=== PATIENT | male | born 1985 | race Caucasian/White ===

== ENCOUNTER 2017-09-19 16:59 | Emergency (ER) | payer OTHER ==
[~2017-09-19] VITALS: Ht 190.5 cm; Wt 63.4 kg
[2017-09-19 17:11] VITALS: BP 108/76
[2017-09-19] MEDS ORDERED: KETOROLAC 30 MG/1 ML IM ONE (18:30)
[2017-09-19] MEDS ORDERED: METHOCARBAMOL 750 MG TABLET PO ONE (18:30)
[2017-09-19] MEDS ORDERED: BACITRACIN OINT 500U/GM, 15 GM TP PRN (19:00)
[2017-09-19] MEDS ORDERED: BACITRACIN ZINC OINT 500U/GM, 0.9 GM ONE (19:04)
[2017-09-19] MEDS ORDERED: KETOROLAC 30 MG/1 ML ONE (19:04)
[2017-09-19] MEDS ORDERED: METHOCARBAMOL 750 MG TABLET ONE (19:04)
== END 2017-09-19 19:23 | disposition home or self-care (01) ==
LOC: ED 19:17
DX: S16.1XXA Strain of muscle, fascia and tendon at neck level, initial encounter (principal); S89.92XA Unspecified injury of left lower leg, initial encounter; V49.9XXA Car occupant (driver) (passenger) injured in unspecified traffic accident, initial encounter; Y93.89 Activity, other specified; Y92.89 Other specified places as the place of occurrence of the external cause; Y99.8 Other external cause status
CPT/HCPCS: 70450; 72125; 73564; 96372; 99284; J1885

== ENCOUNTER 2018-01-06 21:44 | Emergency (ER) | payer OTHER ==
[~2018-01-06] VITALS: Ht 190.5 cm; Wt 63.8 kg
[2018-01-06] MEDS ORDERED: ONDANSETRON ODT 4 MG ONE (22:29)
[2018-01-06] MEDS ORDERED: MECLIZINE CHEWABLE 25 MG TAB ONE (22:29)
[2018-01-06] MEDS ORDERED: MECLIZINE CHEWABLE 25 MG TAB PO ONE (22:30)
[2018-01-06] MEDS ORDERED: ONDANSETRON ODT 4 MG PO ONE (22:30)
[2018-01-06 22:36] LABS: MEAN CORPUSCULAR HEMOGLOBIN 31.3 pg (27.5-34.5); MEAN CORPUSCULAR HGB CONC 34.5 g/dL (33.2-36.2); MEAN CORPUSCULAR VOLUME 90.7 fL (81-97); RED BLOOD COUNT 4.64 x10^6/uL (4.38-5.82)
[2018-01-06 22:37] LABS: BASOPHILS # (AUTO) 0.03 x10^3/uL (0-0.1); BASOPHILS % (AUTO) 1 % (0-1); EOSINOPHILS # (AUTO) 0.32 x10^3/uL (0-0.4); EOSINOPHILS % (AUTO) 6 % (1-7); LYMPHOCYTES # (AUTO) 1.69 x10^3/uL (1-3.4); LYMPHOCYTES % (AUTO) 31 % (22-44); MD NO; MEAN PLATELET VOLUME 9.4 fL (7.4-10.4); MONOCYTES # (AUTO) 0.42 x10^3/uL (0.2-0.8); MONOCYTES % (AUTO) 8 % (2-9); NEUTROPHILS # (AUTO) 3.07 x10^3/uL (1.8-6.8); NEUTROPHILS % (AUTO) 56 % (42-75); PLATELET COUNT 135 x10^3/uL (130-400)
[2018-01-06 22:45] LABS: ALANINE AMINOTRANSFERASE 21 U/L (12-78); ALBUMIN 4.3 g/dL (3.4-5.0); ANION GAP 7 mmol/L (5-15); CALCIUM 8.9 mg/dL (8.5-10.1); CHLORIDE 103 mmol/L (98-107); CREATININE 0.89 mg/dL (0.7-1.3)
[2018-01-06 22:49] LABS: ALKALINE PHOSPHATASE 68 U/L (45-117); BILIRUBIN,TOTAL 0.7 mg/dL (0.2-1.0); TOTAL PROTEIN 7.3 g/dL (6.4-8.2); TROPONIN I < 0.015 ng/mL (0.000-0.045)
[2018-01-06 23:59] VITALS: BP 110/76
== END 2018-01-07 00:03 | disposition home or self-care (01) ==
LOC: ED 22:23
DX: R42 Dizziness and giddiness (principal); R11.0 Nausea; R06.00 Dyspnea, unspecified
CPT/HCPCS: 36415; 71045; 80053; 84484; 85025; 93005; 99285; Q0162